=== PATIENT | male | born 1975 | race Caucasian/White ===

== ENCOUNTER 2018-08-17 20:53 | Emergency (ER) | payer BC ==
[2018-08-17] MEDS ORDERED: Sodium Chloride 0.9% 1,000 ML ONE (21:06)
[2018-08-17] MEDS ORDERED: Ketorolac Tromethamine 30 MG/ML VIAL ONE (21:06)
[2018-08-17] MEDS ORDERED: Fentanyl 100 MCG/2 ML VIAL ONE ×3 (21:28→23:20)
[2018-08-17 21:35] LABS: ALT (SGPT) 42 U/L (8-55); AST (SGOT) 22 U/L (5-34); Albumin 4.7 g/dL (3.5-5.0); Alkaline Phosphatase 105 U/L (40-150); Anion Gap 14 mmol/L (10-20); BUN (Urea Nitrogen) 14 mg/dL (8.9-20.6); Calc. Creatinine Clearance 0 mL/min (70-130); Calcium 9.8 mg/dL (7.8-10.44); Carbon Dioxide 28 mmol/L (22-29); Chloride 103 mmol/L (98-107); Estimated GFR-MDRD 56; Globulin 2.7 g/dL (2.4-3.5); Glucose 164 mg/dL (70-105); Potassium 3.9 mmol/L (3.5-5.1); Protein, Total 7.4 g/dL (6.0-8.3); Sodium 141 mmol/L (136-145)
--- NOTE | 2018-08-17 21:40 | CT ---
CT ABDOMEN AND PELVIS WITHOUT CONTRAST: HISTORY: Left flank pain. TECHNIQUE: Noncontrast enhanced CT images of the abdomen and pelvis are obtained. FINDINGS: The lung bases are unremarkable. No evidence of free intraperitoneal air or fluid is seen. The live r, spleen, gallbladder, and pancreas are unremarkable. Adrenal glands are unremarkable. The right k idney is unremarkable. There is mild left hydroureteronephrosis. There is an 8 mm proximal left ureteral calculus. The res t of the left ureter is decompressed. No dilated loops of bowel are seen. No evidence of colonic abnormalities are seen. No evidence of free intraperitoneal air or fluid seen . IMPRESSION: An 8 mm proximal left ureteral calculus. POS: [facility]
[2018-08-17 23:56] LABS: Bilirubin Negative (Negative); Blood, Urine Large (Negative); Glucose, Urine (Dipstick) Negative (Negative); Leukocyte Negative (Negative); Nitrite Negative (Negative); Protein, Urine (Dipstick) Trace mg/dL (Neg-Trace); Specific Gravity, Urine 1.025 (1.005-1.030); Urobilinogen 0.2 mg/dL (0.2-1.0)
[2018-08-17 23:58] LABS: Clarity Hazy (Clear)
[2018-08-18 00:02] LABS: Bacteria/HPF Rare-Few HPF (None Seen); RBC/HPF GREATER THAN 50-TNTC HPF (0-3); Squamous Epithelial 0-3 HPF (0-3); WBC/HPF 0-3 HPF (0-3); Yeast-All Forms 3+ HPF (None Seen)
== END 2018-08-17 23:38 | disposition short-term general hospital (02) ==
LOC: MADERS 20:53
DX: N13.2 Hydronephrosis with renal and ureteral calculous obstruction (principal); E11.9 Type 2 diabetes mellitus without complications; Z79.84 Long term (current) use of oral hypoglycemic drugs; Z87.442 Personal history of urinary calculi
CPT/HCPCS: 74176; 80053; 81003; 81015; 87086; 96361; 96374; 96375; 96376; J1885; J3010; J7050